=== PATIENT | male | born 1970 | race Caucasian/White ===

== ENCOUNTER 2017-11-03 02:15 | Emergency (ER) | payer OTHER ==
[2017-11-03] MEDS: KETOROLAC 60 MG INJ IM (05:34)
== END 2017-11-03 07:07 | disposition home or self-care (01) ==
LOC: FTE 02:15
DX: S39.011A Strain of muscle, fascia and tendon of abdomen, initial encounter (principal); X58.XXXA Exposure to other specified factors, initial encounter; Y92.9 Unspecified place or not applicable
CPT/HCPCS: 76870; 96372; 99285-25

== ENCOUNTER 2018-11-11 10:36 | Emergency (ER) | payer BC, OTHER | END 2018-11-11 11:20 | disposition home or self-care (01) | LOC: FTE 10:36 | DX: R05 Cough (principal); R52 Pain, unspecified | CPT/HCPCS: 99283 ==